=== PATIENT | male | born 1965 ===

== ENCOUNTER 2018-03-08 16:33 | Emergency (ER) | payer MEDICAID, OTHER ==
[2018-03-08 16:53] VITALS: BP 114/80; PULSE 80; RESP 16; TEMP 98.1; O2SAT 98
--- NOTE | 2018-03-08 17:26 | C.PDOC ---
History Of Present Illness 52 year old male with PMHx of Hepatitis C presents to the ED requesting substance detoxification from heroin. He states that he had a shoulder surgery and after he ran out of his narcotics, he started using heroin. Reports he has been using heroin since he was young, but lately he has been using it daily. Denies SI/HI, auditory or visual hallucinations or any other complaints. Time Seen by Provider: 03/08/18 17:11 Chief Complaint (Nursing): Substance Abuse History Per: Patient History/Exam Limitations: no limitations Onset/Duration Of Symptoms: Days Suicide/Self Injury Attempted (Context): None Modifying Factor(s): Other (heroin) Associated Symptoms: Suicidal Thoughts Past Medical History Reviewed: Historical Data, Nursing Documentation, Vital Signs Vital Signs: Last Vital Signs Temp 98.1 F 03/08/18 16:50 Pulse 80 03/08/18 16:50 Resp 16 03/08/18 16:50 BP 114/80 03/08/18 16:50 Pulse Ox 98 03/08/18 16:50 - Medical History PMH: Hepatitis (C) Other Surgeries: right shoulder surgery - [facility] DRESSING OF WOUND NEC (12/25/13) Family History: States: No Known Family Hx - Social History Hx Alcohol Use: Yes Hx Substance Use: Yes (this morning) - Immunization History Hx Tetanus Toxoid Vaccination: Yes Review Of Systems Except As Marked, All Systems Reviewed And Found Negative. Psych: Positive for: Suicidal ideation Physical Exam - Physical Exam Appears: Non-toxic Skin: Warm, Dry Head: Normacephalic Eye(s): bilateral: Normal Inspection, PERRL, EOMI Nose: Normal Oral Mucosa: Moist Neck: Normal ROM Chest: Symmetrical Cardiovascular: Rhythm Regular Respiratory: Normal Breath Sounds, No Rales, No Rhonchi, No Wheezing Gastrointestinal/Abdominal: Soft, No Tenderness Neurological/Psych: Oriented x3, Normal Speech ED Course And Treatment O2 Sat by Pulse Oximetry: 98 (RA) Pulse Ox Interpretation: Normal Medical Decision Making Medical Decision Making: Patient told there are no detox beds available. Patient educated on the detox program and given contact information to set up an appointment. Patient agrees to be discharged and states he will follow up. Disposition Counseled Patient/Family Regarding: Diagnosis, Need For Followup - Disposition Disposition: HOME/ ROUTINE Disposition Time: 17:35 Condition: STABLE Forms: [employer] (Lao), General Discharge Instructions - POA Present On Arrival: None - Clinical Impression Clinical Impression: Drug dependence - Scribe Statement The provider has reviewed the documentation as recorded by the Scribe Lu Lua All medical record entries made by the Scribe were at my direction and personally dictated by me. I have reviewed the chart and agree that the record accurately reflects my personal performance of the history, physical exam, medical decision making, and the department course for this patient. I have also personally directed, reviewed, and agree with the discharge instructions and disposition.
== END 2018-03-08 17:52 | disposition home or self-care (01) ==
LOC: C.ER 16:33
DX: F19.20 Other psychoactive substance dependence, uncomplicated (principal)